=== PATIENT | male | born 1955 ===

== ENCOUNTER 2018-05-06 13:11 | Inpatient (IN) | payer BC, OTHER ==
[2018-05-06] MEDS ORDERED: Morphine 4 mg/ml ISec IVP STA ×2 (13:44→19:24)
[2018-05-06] MEDS ORDERED: Sodium Chloride 0.9% 500 ML IV STA (13:44)
--- NOTE | 2018-05-06 13:54 | ED PDOC ---
Arrival/HPI - General Chief Complaint: Trauma Time Seen by Provider: 05/06/18 13:16 Historian: Patient - History of Present Illness Narrative History of Present Illness (Text): 05/06/18 13:51 63 year old male, with no significant past medical history, presents to the emergency department brought in by EMS s/p fall off a ladder earlier today. Patient states he doesn't remember how high he was, what he was working on at the time, or how he fell. Patient is currently complaining of back pain and right shoulder pain. He denies any lower extremity pain, headache, dizziness, abdominal pain, nausea, vomiting, or any other complaint. Time/Duration: Prior to Arrival Symptom Onset: Sudden Symptom Course: Unchanged Activities at Onset: Significant Context: Other (fall from ladder ) Past Medical History - Provider Review Nursing Documentation Reviewed: Yes - Infectious Disease Hx of Infectious Diseases: None - Cardiac Hx Cardiac Disorders: No - Neurological Hx Neurological Disorder: No - Renal Hx Renal Disorder: No - Psychiatric Hx Substance Use: No - Anesthesia Hx Anesthesia: No Family/Social History - Physician Review Nursing Documentation Reviewed: Yes Family/Social History: No Known Family HX Smoking Status: Unknown If Ever Smoked Hx Alcohol Use: No Hx Substance Use: No Allergies/Home Meds Allergies/Adverse Reactions: Allergies No Known Allergies Allergy (Verified 05/06/18 13:24) Home Medications: Home Meds Medication Instructions Recorded Confirmed No Known Home Med 05/06/18 05/06/18 Review of Systems - Physician Review All systems were reviewed & negative as marked: Yes - Review of Systems Constitutional: absent: Fevers Respiratory: absent: SOB, Cough Cardiovascular: absent: Chest Pain Gastrointestinal: absent: Abdominal Pain, Constipation, Diarrhea, Nausea, Vomiting Musculoskeletal: Arthralgias, Back Pain, Myalgias, Other (right shoulder pain ). absent: Neck Pain Skin: absent: Pruritis, Skin Lesions Neurological: absent: Headache, Dizziness, Focal Weakness, Gait Changes, Speech Changes, Facial Droop Psychiatric: absent: Anxiety Physical Exam Vital Signs Reviewed: Yes Vital Signs Temp Pulse Resp BP Pulse Ox 05/06/18 13:32 97.9 F 81 16 164/77 H 97 Temperature: Afebrile Blood Pressure: Hypertensive Pulse: Regular Respiratory Rate: Normal Appearance: Positive for: Well-Appearing, Non-Toxic, Comfortable Pain Distress: None Mental Status: Positive for: Alert and Oriented X 3 - Systems Exam Head: Present: Atraumatic, Normocephalic Pupils: Present: PERRL Extroacular Muscles: Present: EOMI Conjunctiva: Present: Normal Mouth: Present: Moist Mucous Membranes Neck: Present: Normal Range of Motion. No: MIDLINE TENDERNESS (no midline c- spine tenderness, c-spine collar held in place ) Respiratory/Chest: Present: Clear to Auscultation, Good Air Exchange, Other (right sided bony rib tenderness, R sided shoulder tenderness). No: Respiratory Distress, Accessory Muscle Use Cardiovascular: Present: Regular Rate and Rhythm, Normal S1, S2. No: Murmurs Abdomen: No: Tenderness, Distention, Peritoneal Signs Back: Present: Midline Tenderness (midline thoracic tenderness) Upper Extremity: Present: Normal Inspection, Normal ROM (normal rom of R shoulder), Tenderness. No: Cyanosis, Edema, Deformity Lower Extremity: Present: Normal Inspection. No: Edema, Tenderness (no bony hip tenderness, no lower extremity tenderness ), Deformity Neurological: Present: GCS=15, CN II-XII Intact, Speech Normal Skin: Present: Warm, Dry, Normal Color. No: Rashes Psychiatric: Present: Alert, Oriented x 3 Medical Decision Making ED Course and Treatment: 05/06/18 13:57 Impression: 63 year old male who presents to the emergency department for evaluation s/p fall off ladder. Plan: -- Cervical spine CT -- Chest/abdomen/pelvis CT w/ IV contrast -- Head CT w/o IV contrast -- Thoracic spine CT w/o Contrast -- Labs -- Morphine -- IV fluids -- Reassess and disposition Progress Notes: 05/06/18 14:[address] w/o IV contrast reviewed by radiologist, shows: IMPRESSION: Normal CT of the head. 05/06/18 15:[address] reviewed by radiologist, shows: IMPRESSION: Mid right clavicular comminuted fracture. No vertebral body fracture. 05/06/18 15:59 Chest/abdomen/pelvis CT w/IV contrast reviewed by radiologist, shows: IMPRESSION: Small right lower lobe infiltrate/lung contusion. Small right pleural effusion. Fractures through the right posterior lateral 4th through 6th ribs. Mid right clavicle fracture. No evidence of vertebral body fracture no thoracic or lumbar spines. Bilateral renal calculi. Cholelithiasis. Liver cyst. 05/06/18 16:09 Placed R arm in sling. Will give medication for rib fractures and incentive spirometry. 05/06/18 16:[address] Beck and ortho consult placed 05/06/18 17:23 - Lab Interpretations I have reviewed the lab results: Yes - RAD Interpretation Radiology Orders: 05/06/18 13:41 CERVICAL SPINE W/O CONTRAST [CT] Stat CHEST,ABD,PEL W/IV CONT ONLY [CT] Stat HEAD W/O CONTRAST [CT] Stat Extension Work Director: Radiologist - Medication Orders Current Medication Orders: Sodium Chloride (Sodium Chloride 0.9%) 500 mls @ 999 mls/hr IV .Q31M STA Stop: 05/06/18 14:14 Discontinued Medications Morphine Sulfate (Morphine) 4 mg IVP STAT STA Stop: 05/06/18 13:45 - Scribe Statement The provider has reviewed the documentation as recorded by the Scribe Dara Kerns All medical record entries made by the Scribe were at my direction and personally dictated by me. I have reviewed the chart and agree that the record accurately reflects my personal performance of the history, physical exam, medical decision making, and the department course for this patient. I have also personally directed, reviewed, and agree with the discharge instructions and disposition. Disposition/Present on Arrival - Present on Arrival Any Indicators Present on Arrival: No History of DVT/PE: No History of Uncontrolled Diabetes: No Urinary Catheter: No History of Decub. Ulcer: No History Surgical Site Infection Following: None - Disposition Have Diagnosis and Disposition been Completed?: Yes Diagnosis: Pulmonary contusion, Ribs, multiple fractures, Clavicular fracture Disposition: HOSPITALIZED Disposition Time: 16:00 Patient Plan: Admission Patient Problems: Current Active Problems Problem Status Onset Pulmonary contusion Acute Ribs, multiple fractures Acute Condition: FAIR
[2018-05-06 14:16] LABS: BASO # 0.05 K/mm3 (0.0-2.0); BASO % 0.3 % (0.0-3.0); EOS # 0.5 (0.0-0.7); EOS % 3.5 % (1.5-5.0); LYMPH % 19.9 % (22.0-35.0); MEAN CELL VOLUME 96.5 fl (80.0-105.0); MEAN CORPUSCULAR HEMOGLOBIN 32.5 pg (25.0-35.0); MEAN CORPUSCULAR HGB CONC 33.6 g/dl (31.0-37.0); MEAN PLATELET VOLUME 10.2 fl (7.0-11.0); MONO # 0.6 (0.1-0.6); RBC 4.62 10^6/uL (3.5-6.1); RED CELL DISTRIBUTION WIDTH 12.5 % (11.5-14.5); WHITE BLOOD COUNT 14.9 10^3/uL (4.5-11.0)
[2018-05-06 14:26] LABS: ALB/GLOB RATIO 1.2 (1.1-1.8); ALBUMIN 4.1 g/dL (3.0-4.8); ALT/SGPT 29 U/L (7-56); AST/SGOT 40 U/L (17-59); BLOOD UREA NITROGEN 16 mg/dL (7-21); CALCIUM 9.4 mg/dL (8.4-10.5); GFR NON-AFRICAN AMERICAN > 60
[2018-05-06 14:30] LABS: PARTIAL THROMBOPLASTIN TIME 28.7 Seconds (26.9-38.3); PROTHROMBIN TIME 11.1 SECONDS (9.4-12.5)
--- NOTE | 2018-05-06 14:49 | CT ---
Date of service: 05/06/2018 PROCEDURE: CT HEAD WITHOUT CONTRAST. HISTORY: head injury COMPARISON: None available. TECHNIQUE: Axial computed tomography images were obtained through the head/brain without intravenous contrast. Radiation dose: Total exam DLP = 1071.97 mGy-cm. This CT exam was performed using one or more of the following dose reduction techniques: Automated exposure control, adjustment of the mA and/or kV according to patient size, and/or use of iterative reconstruction technique. FINDINGS: HEMORRHAGE: No intracranial hemorrhage. BRAIN: No mass effect or edema. No atrophy or chronic microvascular ischemic changes. VENTRICLES: Unremarkable. No hydrocephalus. CALVARIUM: Unremarkable. PARANASAL SINUSES: Unremarkable as visualized. No significant inflammatory changes. MASTOID AIR CELLS: Unremarkable as visualized. No inflammatory changes. OTHER FINDINGS: None. IMPRESSION: Normal CT of the Head.
--- NOTE | 2018-05-06 14:58 | CT ---
Date of service: 05/06/2018 PROCEDURE: CT Cervical Spine without contrast HISTORY: fall from ladder COMPARISON: None available. TECHNIQUE: Axial computed tomography images were obtained of the cervical spine without the use of intravenous contrast. Coronal and sagittal reformatted images were created and reviewed. Radiation dose: Total exam DLP = 653.72 mGy-cm. This CT exam was performed using one or more of the following dose reduction techniques: Automated exposure control, adjustment of the mA and/or kV according to patient size, and/or use of iterative reconstruction technique. FINDINGS: VERTEBRAE: No fracture. Normal alignment. No destructive bony lesion. DISCS/SPINAL CANAL/NEURAL FORAMINA: Multilevel degenerative disc disease with C5-6 left paracentral disc herniation. PARASPINAL SOFT TISSUES: Unremarkable. OTHER FINDINGS: Mid right clavicular comminuted fracture. IMPRESSION: Mid right clavicular comminuted fracture. No vertebral body fracture.
--- NOTE | 2018-05-06 16:01 | CT ---
Date of service: 05/06/2018 PROCEDURE: CT Chest, Abdomen and Pelvis with intravenous contrast HISTORY: fall from ladder COMPARISON: None available. TECHNIQUE: IV dose administered: Radiation dose: Total exam DLP = 687.74 mGy-cm. This CT exam was performed using one or more of the following dose reduction techniques: Automated exposure control, adjustment of the mA and/or kV according to patient size, and/or use of iterative reconstruction technique. FINDINGS: CT CHEST WITH CONTRAST: LUNGS: Small right lower lobe infiltrate/lung contusion. MEDIASTINUM: Unremarkable. Normal caliber aorta and pulmonary arterial trunk. No aortic dissection. Normal size heart. LYMPH NODES: Unremarkable. PLEURA: Small right pleural effusion BONES: Right posterior lateral 4th through 6th rib fractures. Right mid clavicle fracture. OTHER FINDINGS: None. CT ABDOMEN AND PELVIS: LIVER: 13 millimeter right hepatic cyst. No gross lesion or ductal dilatation. GALLBLADDER AND BILE DUCTS: 21 millimeter gallstone. PANCREAS: Unremarkable. No gross lesion or ductal dilatation. SPLEEN: Unremarkable. ADRENALS: Unremarkable. No mass. KIDNEYS AND URETERS: 2.8 centimeter left renal cyst. Bilateral renal calculi measuring up to 14 millimeters in the left renal pelvis. No definite hydronephrosis. VASCULATURE: No aortic atherosclerotic calcification or mural plaque present. Unremarkable. No aortic aneurysm. BOWEL: Unremarkable. No obstruction. No gross mural thickening. APPENDIX: Normal appendix. PERITONEUM: Unremarkable. No free fluid. No free air. LYMPH NODES: Unremarkable. No enlarged lymph nodes. BLADDER: Unremarkable. REPRODUCTIVE: Unremarkable. BONES: No acute fracture. OTHER FINDINGS: None. IMPRESSION: Small right lower lobe infiltrate/lung contusion. Small right pleural effusion. Fractures through the right posterior lateral 4th through 6th ribs. Mid right clavicle fracture. No evidence of vertebral body fracture no thoracic or lumbar spines. Bilateral renal calculi. Cholelithiasis. Liver cyst.
--- NOTE | 2018-05-06 16:10 | RAD ---
Date of service: 05/06/2018 PROCEDURE: CHEST RADIOGRAPH, 1 VIEW HISTORY: FALL COMPARISON: None available. FINDINGS: LUNGS: Clear. PLEURA: No pneumothorax or pleural fluid seen. CARDIOVASCULAR: No aortic atherosclerotic calcification present. Mild cardiomegaly OSSEOUS STRUCTURES: There is a displaced fracture of the right midclavicle. VISUALIZED UPPER ABDOMEN: Normal. OTHER FINDINGS: None. IMPRESSION: Displaced fracture of the right mid clavicle.
[2018-05-06 19:42] LABS: IRON 78 ug/dL (45-180)
[2018-05-06 20:03] LABS: % IRON SATURATION 28 % (20-55); TOTAL IRON BINDING CAPACITY 276 ug/dL (261-462)
[2018-05-06 21:36] VITALS: BMI 25.8
--- NOTE | 2018-05-06 22:22 | HP ---
DATE OF EXAM: 05/06/2018 The patient was seen and examined at the bedside 05/06/2018. CHIEF COMPLAINT: Trauma. HISTORY OF PRESENT ILLNESS: Mr. Shemar Cline is a 63-year-old male with no significant past medical history, came to the emergency department, brought by EMS status post fall of a ladder earlier today. The patient states does not remember how high he was, what he was working on that time and how he fell. The patient is currently complaining of back pain and right shoulder pain. He denies lower extremity pain. No headache. No dizziness. No chest pain. No palpitations. No hematuria. No hematochezia. PAST MEDICAL HISTORY: Nonsignificant. FAMILY HISTORY: Father and mother noncontributory. HABITS: Never smoked. No drugs. No ethanol. ALLERGIES: THE PATIENT IS NOT ALLERGIC WITH ANY MEDICATIONS. HOME MEDICATIONS: Denied. REVIEW OF SYSTEMS: The patient was seen and examined at the bedside, looking comfortable. No fever. No chills. No shortness of breath. No chest pain. No abdominal pain, constipation, diarrhea, nausea, or vomiting. Complaining about back pain, myalgia, especially right shoulder pain. No pruritus or skin ulcer. No dizziness. PHYSICAL EXAMINATION: VITAL SIGNS: Temperature 97.9, pulse 81, respiratory rate 20 , blood pressure 120/80 , and pulse oximetry 97. HEENT: Head is normocephalic and atraumatic. Eyes; PERRLA. Extraocular muscles intact. Conjunctivae clear. Nose patent. NECK: Supple. No carotid bruits, JVD, or thyromegaly. CHEST: Bilaterally symmetrical. HEART: S1 and S2 positive. LUNGS: Clear to auscultation. ABDOMEN: Soft. Bowel sounds present. No organomegaly. EXTREMITIES: No edema. No cyanosis. NEUROLOGIC: The patient awake and alert. Moving all four extremities. No focal deficits. LABORATORY DATA: White blood cell 14.9, hemoglobin 15, hematocrit 44.6, and platelets 258. Sodium 138, potassium 4.1, BUN 15, creatinine 0.7, and glucose 113. ASSESSMENT AND PLAN: Mr. Shemar Cline is a 63-year-old male with leukocytosis, hyperglycemia, status post fall, and shortness of breath. Chest x-ray done shows displaced fracture of the right mid clavicle. CAT scan of the head done, normal CAT scan of the head. CAT scan of the chest, abdomen and pelvis, small right lower lobe infiltrates or lung contusion, small right pleural effusion, fracture through the right posterolateral fourth through sixth rib, mid right clavicular fracture, no evidence of vertebral fracture, no thoracic or pulmonary spine fracture. Bilateral renal calculi. Has cholelithiasis. Cervical spine CT done. Mid right comminuted fracture, no vertebral body fracture. We admitted the patient, call consult with Orthopedic, Dr. Vern Grimaldo. Morphine given. We will call consult with regrinder. Gastrointestinal and deep vein thrombosis prophylaxes. Repeat labs. We will follow up. Shahida Berry MD [facility]
[2018-05-07] MEDS ORDERED: HYDROmorphone 0.5 mg/0.5 ml ISec IVP STA (00:43)
[2018-05-07] MEDS: Albuterol-Ipratrop 3 mg / 0.5 (3 ml) UD IH SCH ×3 (00:47→08:13)
--- NOTE | 2018-05-07 03:30 | CP.PCM.PN ---
Subjective - Date & Time of Evaluation Date of Evaluation: 05/07/18 Time of Evaluation: : - Subjective Subjective: Patient was seen because I was asked to co-sing order of dilaudid 0.5 mg IV stat. Nurse states that it was obtained from medical office worker because there was an hold order for morphine IV prn. It was held as per , as per ER protocol. Patient complained of ribs pain and shoulder pain. Has no other complaints. Medical record was reviewed. This 63 year old male was admitted after a fall from a ladder,back pain, right shoulder pain. Has PMH of no significant diseases. Objective - Vital Signs/Intake and Output Vital Signs (last 24 hours): Temp Pulse Resp BP Pulse Ox 98.4 F 68 20 153/82 H 95 05/06/18 22:00 05/07/18 00:49 05/06/18 22:00 05/06/18 22:00 05/06/18 22:00 Intake and Output: 05/06/18 05/07/18 18:59 06:59 Intake Total 480 Balance 480 - Medications Medications: Current Medications Acetaminophen (Tylenol 325mg Tab) 650 mg PO Q4H PRN PRN Reason: Fever >100.4 F Albuterol/Ipratropium (Duoneb 3 Mg/0.5 Mg (3 Ml) Ud) 3 ml IH [id number] [facility] Last Admin: 05/07/18 02:03 Dose: Not Given Famotidine (Pepcid) 40 mg PO HS [facility] Last Admin: 05/06/18 21:27 Dose: 40 mg Hydromorphone HCl (Dilaudid) 0.5 mg IVP Q4H PRN PRN Reason: Pain, Mild (1-3) - Labs Labs: 05/06/18 14:00 05/06/18 14:00 PT 11.1 SECONDS (9.4-12.5) 05/06/18 14:00 INR 1.00 05/06/18 14:00 APTT 28.7 Seconds (26.9-38.3) 05/06/18 14:00 - Constitutional Appears: Well, No Acute Distress - Head Exam Head Exam: ATRAUMATIC, NORMAL INSPECTION, NORMOCEPHALIC - Eye Exam Eye Exam: Normal appearance - ENT Exam ENT Exam: Normal External Ear Exam - Neck Exam Neck Exam: Normal Inspection - Respiratory Exam Respiratory Exam: NORMAL BREATHING PATTERN - Cardiovascular Exam Cardiovascular Exam: absent: JVD - GI/Abdominal Exam GI & Abdominal Exam: absent: Distended - Rectal Exam Rectal Exam: Deferred - Exam Additional comments: Deferred. - Extremities Exam Extremities Exam: Normal Inspection - Back Exam Back Exam: NORMAL INSPECTION - Neurological Exam Neurological Exam: Alert, Awake, Oriented x3 - Psychiatric Exam Psychiatric exam: Normal Affect, Normal Mood - Skin Skin Exam: Normal Color Assessment and Plan - Assessment and Plan (Free Text) Assessment: Right shoulder pain. Back pain. S/P fall. Right mid clavicle fracture. Plan: Dilaudid 0.5 mg IV x 1. Continue observation.
[2018-05-07 07:14] LABS: HEMOGLOBIN 12.8 g/dL (14.0-18.0); MEAN CORPUSCULAR HEMOGLOBIN 31.5 pg (25.0-35.0); RBC 4.06 10^6/uL (3.5-6.1); RED CELL DISTRIBUTION WIDTH 12.6 % (11.5-14.5); WHITE BLOOD COUNT 11.1 10^3/uL (4.5-11.0)
[2018-05-07 07:30] LABS: BLOOD UREA NITROGEN 17 mg/dL (7-21); CALCIUM 8.5 mg/dL (8.4-10.5); GFR NON-AFRICAN AMERICAN > 60
[2018-05-07 08:53] LABS: MEAN CELL VOLUME 97.1 fl (80.0-105.0)
[2018-05-07] MEDS: HYDROmorphone 0.5 mg/0.5 ml ISec IVP PRN ×3 (08:59→17:33)
[2018-05-07] MEDS ORDERED: Albuterol-Ipratrop 3 mg / 0.5 (3 ml) UD IH PRN (11:55)
--- NOTE | 2018-05-07 12:23 | CP.PCM.CON ---
History of Present Illness - History of Present Illness History of Present Illness: Orthopedic consult: Dr. Porras Patient is a RHD 63 y/o male c/o R shoulder pain. 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 He admits to falling onto his right shoulder, hitting his head on the floor, losing consciousness, awakening upon his arrival to the [facility] by ambulance. Currently, his pain is controlled with pain medications, describing it as dull, intermittent and rated a 2/10. The pain is located diffuse anteriorly and is worsened with movement of the RUE. The pain is alleviated with inactivity. He denies any radiation of pain, numbness or tingling. He also denies CP/SOB/N/V/D/fever/dysuria/melena. PMH: denies PSH: Appendectomy meds: as per med rec allergy: NKDA SH: denies tobacco/drug use, admits to glass of wine with dinner daily. 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 Review of Systems - Review of Systems All systems: reviewed and no additional remarkable complaints except Review of Systems: as per HPI Past Patient History - Infectious Disease Hx of Infectious Diseases: None - Past Medical History & Family History Past Family History: Reviewed and not pertinent - Past Social History Smoking Status: Never Smoked - CARDIAC Hx Cardiac Disorders: No - NEUROLOGICAL Hx Neurological Disorder: No - RENAL Hx Chronic Kidney Disease: No - MUSCULOSKELETAL/RHEUMATOLOGICAL Hx Falls: Yes - PSYCHIATRIC Hx Substance Use: No - ANESTHESIA Hx Anesthesia: No Meds Allergies/Adverse Reactions: Allergies Allergy/AdvReac Type Severity Reaction Status Date / Time No Known Allergies Allergy Verified 05/06/18 13:24 - Medications Medications: Current Medications Acetaminophen (Tylenol 325mg Tab) 650 mg PO Q4H PRN PRN Reason: Fever >100.4 F Albuterol/Ipratropium (Duoneb 3 Mg/0.5 Mg (3 Ml) Ud) 3 ml IH [id number] PRN PRN Reason: Shortness of Breath Arformoterol Tartrate (Brovana) 15 mcg IH [id number] [facility] Budesonide (Pulmicort Respules) 0.5 mg IH [id number] [facility] Famotidine (Pepcid) 40 mg PO HS [facility] Last Admin: 05/06/18 21:27 Dose: 40 mg Hydromorphone HCl (Dilaudid) 0.5 mg IVP Q4H PRN PRN Reason: Pain, Mild (1-3) Last Admin: 05/07/18 08:59 Dose: 0.5 mg Lidocaine (Lidoderm) 1 ea TD DAILY SHERRY Physical Exam - Constitutional Appears: Well, No Acute Distress - Head Exam Head Exam: ATRAUMATIC, NORMOCEPHALIC - Eye Exam Eye Exam: EOMI, Normal appearance - ENT Exam ENT Exam: Mucous Membranes Moist - Respiratory Exam Respiratory Exam: NORMAL BREATHING PATTERN - Extremities Exam Additional comments: R shoulder: limited ROM due to pain/fracture mild swelling over mid clavicle moderate tenderness over mid clavicle no skin tenting sensation intact AXN/MN/UN/RN motor intact MN/UN/RN radial pulse intact L shoulder: no tenderness no masses/swelling/lesions/erythema FROM sensation intact AXN/MN/UN/RN motor intact MN/UN/RN radial pulse intact - Neurological Exam Neurological exam: Alert, CN II-XII Intact, Oriented x3 - Psychiatric Exam Psychiatric exam: Normal Affect, Normal Mood - Skin Skin Exam: Normal Color, Warm Results - Vital Signs Recent Vital Signs: Last Vital Signs Temp 98.3 F 05/07/18 10:17 Pulse 66 05/07/18 10:17 Resp 18 05/07/18 10:17 BP 154/86 H 05/07/18 10:17 Pulse Ox 98 05/07/18 10:17 - Labs Result Diagrams: 05/07/18 06:20 05/07/18 06:20 Labs: Laboratory Results - last 24 hr 05/06/18 05/06/18 05/06/18 14:00 14:00 14:00 WBC 14.9 H RBC 4.62 Hgb 15.0 Hct 44.6 MCV 96.5 MCH 32.5 MCHC 33.6 RDW 12.5 Plt Count 258 MPV 10.2 Neut % (Auto) 72.3 H Lymph % (Auto) 19.9 L [place] % (Auto) 4.0 Eos % (Auto) 3.5 Baso % (Auto) 0.3 Lymph # (Auto) 3.0 [place] # (Auto) 0.6 Eos # (Auto) 0.5 Baso # (Auto) 0.05 Absolute Neuts (auto) 10.74 H PT 11.1 INR 1.00 APTT 28.7 Sodium 138 Potassium 4.1 Chloride 98 Carbon Dioxide 32 Anion Gap 12 BUN 16 Creatinine 0.7 L Est GFR ( Amer) > 60 Est GFR (Non-Af Amer) > 60 Random Glucose 113 H Calcium 9.4 Iron TIBC % Saturation Total Bilirubin 0.5 AST 40 ALT 29 Alkaline Phosphatase 74 Total Protein 7.5 Albumin 4.1 Globulin 3.5 Albumin/Globulin Ratio 1.2 Triglycerides Cholesterol LDL Cholesterol Direct HDL Cholesterol TSH 3rd Generation 05/06/18 05/06/18 05/07/18 14:00 14:00 06:20 WBC 11.1 H D RBC 4.06 Hgb 12.8 L D Hct 36.6 L MCV 97.1 MCH 31.5 MCHC 35.0 RDW 12.6 Plt Count 250 MPV 10.0 Neut % (Auto) Lymph % (Auto) [place] % (Auto) Eos % (Auto) Baso % (Auto) Lymph # (Auto) [place] # (Auto) Eos # (Auto) Baso # (Auto) Absolute Neuts (auto) PT INR APTT Sodium Potassium Chloride Carbon Dioxide Anion Gap BUN Creatinine Est GFR ( Amer) Est GFR (Non-Af Amer) Random Glucose Calcium Iron 78 TIBC 276 % Saturation 28 Total Bilirubin AST ALT Alkaline Phosphatase Total Protein Albumin Globulin Albumin/Globulin Ratio Triglycerides 79 Cholesterol 236 H LDL Cholesterol Direct 149 H HDL Cholesterol 57 TSH 3rd Generation 05/07/18 05/07/18 06:20 06:20 WBC RBC Hgb Hct MCV MCH MCHC RDW Plt Count MPV Neut % (Auto) Lymph % (Auto) [place] % (Auto) Eos % (Auto) Baso % (Auto) Lymph # (Auto) [place] # (Auto) Eos # (Auto) Baso # (Auto) Absolute Neuts (auto) PT INR APTT Sodium 136 Potassium 3.7 Chloride 99 Carbon Dioxide 30 Anion Gap 12 BUN 17 Creatinine 0.6 L Est GFR ( Amer) > 60 Est GFR (Non-Af Amer) > 60 Random Glucose 125 H Calcium 8.5 Iron TIBC % Saturation Total Bilirubin AST ALT Alkaline Phosphatase Total Protein Albumin Globulin Albumin/Globulin Ratio Triglycerides Cholesterol LDL Cholesterol Direct HDL Cholesterol TSH 3rd Generation 2.11 - Impressions Impression: Accession No. : [id number] Patient Name / ID : SHREYA VERNON / [id number] Exam Date : 05/06/2018 15:40:23 ( Approved ) Study Comment : Sex / Age : M / 63Y Creator : Ace Luke MD Dictator : Ace Luke MD [employer] Supervisor : Grader Marker : Ace Luke MD Approver2 : Report Date : 05/06/2018 16:07:00 My Comment : Date of service: 05/06/2018 PROCEDURE: CHEST RADIOGRAPH, 1 VIEW HISTORY: FALL COMPARISON: None available. FINDINGS: LUNGS: Clear. PLEURA: No pneumothorax or pleural fluid seen. CARDIOVASCULAR: No aortic atherosclerotic calcification present. Mild cardiomegaly OSSEOUS STRUCTURES: There is a displaced fracture of the right midclavicle. VISUALIZED UPPER ABDOMEN: Normal. OTHER FINDINGS: None. IMPRESSION: Displaced fracture of the right mid clavicle. Accession No. : [id number] Patient Name / ID : SHREYA VERNON / [id number] Exam Date : 05/06/2018 15:21:13 ( Approved ) Study Comment : Sex / Age : M / 63Y Creator : Reynold Kunz MD Dictator : Reynold Kunz MD [employer] Supervisor : Grader Marker : Reynold Kunz MD Approver2 : Report Date : 05/06/2018 15:57:51 My Comment : Date of service: 05/06/2018 PROCEDURE: CT Chest, Abdomen and Pelvis with intravenous contrast HISTORY: fall from ladder COMPARISON: None available. TECHNIQUE: IV dose administered: Radiation dose: Total exam DLP = 687.74 mGy-cm. This CT exam was performed using one or more of the following dose reduction techniques: Automated exposure control, adjustment of the mA and/or kV according to patient size, and/or use of iterative reconstruction technique. FINDINGS: CT CHEST WITH CONTRAST: LUNGS: Small right lower lobe infiltrate/lung contusion. MEDIASTINUM: Unremarkable. Normal caliber aorta and pulmonary arterial trunk. No aortic dissection. Normal size heart. LYMPH NODES: Unremarkable. PLEURA: Small right pleural effusion BONES: Right posterior lateral 4th through 6th rib fractures. Right mid clavicle fracture. OTHER FINDINGS: None. CT ABDOMEN AND PELVIS: LIVER: 13 millimeter right hepatic cyst. No gross lesion or ductal dilatation. GALLBLADDER AND BILE DUCTS: 21 millimeter gallstone. PANCREAS: Unremarkable. No gross lesion or ductal dilatation. SPLEEN: Unremarkable. ADRENALS: Unremarkable. No mass. KIDNEYS AND URETERS: 2.8 centimeter left renal cyst. Bilateral renal calculi measuring up to 14 mi llimeters in the left renal pelvis. No definite hydronephrosis. VASCULATURE: No aortic atherosclerotic calcification or mural plaque present. Unremarkable. No aortic aneurysm. BOWEL: Unremarkable. No obstruction. No gross mural thickening. APPENDIX: Normal appendix. PERITONEUM: Unremarkable. No free fluid. No free air. LYMPH NODES: Unremarkable. No enlarged lymph nodes. BLADDER: Unremarkable. REPRODUCTIVE: Unremarkable. BONES: No acute fracture. OTHER FINDINGS: None. IMPRESSION: Small right lower lobe infiltrate/lung contusion. Small right pleural effusion. Fractures through the right posterior lateral 4th through 6th ribs. Mid right clavicle fracture. No evidence of vertebral body fracture no thoracic or lumbar spines. Bilateral renal calculi. Cholelithiasis. Liver cyst. Accession No. : [id number] Patient Name / ID : SHREYA VERNON / [id number] Exam Date : 05/07/2018 13:00:14 ( Approved ) Study Comment : Sex / Age : M / 63Y Creator : Ace Luke MD Dictator : Ace Luke MD [employer] Supervisor : Grader Marker : Ace Luke MD Approver2 : Report Date : 05/07/2018 13:15:11 My Comment : Date of service: 05/07/2018 PROCEDURE: Radiographs of the right clavicle. HISTORY: clavicle fx COMPARISON: None. TECHNIQUE: Three views obtained. FINDINGS: RIGHT CLAVICLE: There is a displaced overlapping fracture of the right mid clavicle JOINTS: Right acromioclavicular and glenohumeral joints are grossly unremarkable. SOFT TISSUES: Grossly unremarkable. OTHER FINDINGS: None. IMPRESSION: There is a displaced overlapping fracture of the right mid clavicle Assessment & Plan (1) Closed right clavicular fracture Assessment and Plan: -Conservative management versus surgical intervention was explained to the patient, as well as the risks and benefits of both. Dr. 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 -Patient would like to think about decision and talk to family about conservative vs surgical management -NPO pMN if patient decides on surgery -Orthopedically stable for discharge to home if patient decides for conservative management. F/u in office within 7-10 days of discharge. -NWB, immobilization in sling for now -pain control -ice to R clavicle -Patient seen and examined with Dr. Porras, case and plan above discussed in agreement. Status: Acute - Date & Time Date: 05/07/18 Time: 12:00
--- NOTE | 2018-05-07 12:56 | CON ---
DATE: 05/07/2018 PULMONARY CONSULT NOTE REFERRING PHYSICIAN: Shahida Berry MD REASON FOR CONSULTATION: Pleural effusion and lung contusion. HISTORY OF PRESENT ILLNESS: This is a 63-year-old male with no significant past medical history who came to the emergency room status post fall off of the ladder. The patient does not remember how high he was, how he fell while he was working on, seen today laying in bed. Reports being medicated with pain medication has back pain and shoulder pain. PAST MEDICAL HISTORY: No significant past medical history. FAMILY HISTORY: No significant cardiopulmonary disease reported. SOCIAL HISTORY: Reports being former smoker quits over 20 years ago. No EtOH abuse. No illicit drug use. ALLERGIES: NO KNOWN ALLERGIES. MEDICATIONS: Reviewed. Tylenol 650 mg every 4 hours p.r.n., fever greater than 100.4, DuoNeb 3 mL inhalation every 6 hours, Pepcid 40 mg at bedtime, Dilaudid 0.5 mg IV push every 4 hours p.r.n. REVIEW OF SYSTEMS: No headache, rhinitis, cough, shortness of breath, chest pain, abdominal pain, nausea, vomiting, diarrhea reported. Does have right rib pain and shoulder pain. The patient admits to snoring. Denies any daytime sleepiness. PHYSICAL EXAMINATION: GENERAL: No acute distress. VITAL SIGNS: Blood pressure 154/86, pulse 66, temperature 98.3 and oxygen saturations 98%. HEENT: Moist mucous membranes. Mallampati score 4. Crowded airway. NECK: Supple. No JVD. RESPIRATORY: Crackles on the right. CARDIOVASCULAR: S1 and S2. ABDOMEN: Soft and nontender. No distention. No organomegaly. EXTREMITIES: No bilateral lower extremity edema. NEUROLOGIC: Awake, alert and verbal. Following commands. LABORATORY DATA: Reviewed. WBC 11.1, RBC 4.06, hemoglobin 12.8, hematocrit 36.4, and platelets 250. PT 11.1, INR 1 and APTT 28.7. Sodium 136, potassium 3.7, chloride 99, carbon dioxide 30, anion gap 12, BUN 17, creatinine 0.6, GFR greater than 60, random glucose 125, calcium 8.5, iron 70, TIBC 276, percent saturation 28, total bilirubin 0.5, AST 40, ALT 29, alkaline phosphatase 74, total protein 7.5, albumin 4.1, globulin 3.5, albumin-globulin ratio 1.2, triglycerides 79, cholesterol 236, LDL cholesterol 149, HDL cholesterol 57 and TSH 2.11. Cervical spine CT shows mid right clavicular comminuted fracture. No vertebral body fracture. Chest, abdomen, pelvis CT shows small right lower lobe infiltrate or lung contusions, small right pleural effusion. Fractures to the right posterolateral fourth through sixth rib, mid right clavicular fracture, no evidence of vertebral body fracture and no thoracic or lumbar spine. Bilateral renal calculi, cholelithiasis, liver cyst. Normal head CT. Chest x-ray shows displaced fracture of the right mid clavicle. IMPRESSION AND PLAN: Status post fall, fracture of right posterolateral fourth to sixth rib, mid right clavicle fracture, pleural effusion, lung contusion seen on CT. The patient is scheduled for orthopedic followup, pain management. Continue inhaled bronchodilators with pulmonary toileting. We will change DuoNeb to p.r.n., add Brovana and Pulmicort routine. Continue incentive spirometry. We will add lidocaine patch to right rib area for pain, aggressive therapy, out of bed to chair. The patient noted with 3 g hemoglobin drop. We will send stool for occult blood. We will not put the patient on chemical prophylaxis due to drop in hemoglobin. If hemoglobin improves, we will consider adding chemical prophylaxis, but for now, we will use sequential compression devices to bilateral lower extremities, pain management. The patient will need followup CT scan to followup on pleural effusion, contusion. This patient was seen and examined with Dr. Smith. Discussed assessment and plan as described above. This patient was seen and examined with Alec Swenson, nurse practitioner. Discussed assessment and plan as described above. Thank you for this consult and we will follow with you. Alec Swenson APN Valeriy Smith MD SUMAYA
--- NOTE | 2018-05-07 13:18 | RAD ---
Date of service: 05/07/2018 PROCEDURE: Radiographs of the right clavicle. HISTORY: clavicle fx COMPARISON: None. TECHNIQUE: Three views obtained. FINDINGS: RIGHT CLAVICLE: There is a displaced overlapping fracture of the right mid clavicle JOINTS: Right acromioclavicular and glenohumeral joints are grossly unremarkable. SOFT TISSUES: Grossly unremarkable. OTHER FINDINGS: None. IMPRESSION: There is a displaced overlapping fracture of the right mid clavicle
[2018-05-07 13:46] LABS: FOLATE 12.1 ng/mL
[2018-05-07] MEDS: Naproxen 550 mg Tab PO SCH (17:33)
[2018-05-07] MEDS: Arformoterol 15 mcg/2 ml Inh Sol IH SCH (20:15)
[2018-05-07] MEDS: Budesonide 0.5 mg/2 ml Inhal Susp UD IH SCH (20:15)
--- NOTE | 2018-05-07 21:18 | CON ---
DATE: 05/07/2018 CHIEF COMPLAINT: Right shoulder displaced clavicle fracture and multiple rib fractures. HISTORY OF PRESENT ILLNESS: Patient is a 63-year-old male, right-hand dominant, who fell off the ladder, yesterday, landing on to his right side. Patient states he had loss of consciousness and was brought to [facility] Emergency Room. X-rays showing a displaced and shortened mid-shaft clavicle fracture and multiple rib fracture. Currently, patient examined at bedside. He reports of pain over the right shoulder. Also denies any paresthesia or motor weakness of right upper extremity. Denies pain in any other extremity or joint. PAST MEDICAL HISTORY: None. PAST SURGICAL HISTORY: Appendicitis. PHYSICAL EXAMINATION RIGHT SHOULDER: There is ecchymosis and swelling. No skin tenting. Tender to palpation over the mid-shaft clavicle. Limited range of motion. Neurovascularly intact distally. IMAGING: X-rays of patient's right clavicle are showing a displaced and shortened mid-shaft clavicular fracture, shortening of 3 centimeters. There is a nondisplaced rib fracture on the right side. ASSESSMENT 1. A 63-year-old male with traumatic right shoulder displaced and shortened mid-shaft clavicle fracture. 2. Multiple right-sided nondisplaced rib fractures. TREATMENT: I had a detailed discussion with the patient, reviewing physical exam and imaging findings. I presented to the patient different treatment options, both surgical versus nonsurgical treatment options. I reviewed the risks and benefits of the surgery with the patient in detail. The risks included, but not limited to bleeding, infection, nerve or vessel damage, continuing pain, stiffness, malunion, nonunion, symptomatic hardware and need for further surgery. I presented to the patient the option of surgical fixation due to significant shortening of the clavicle. Patient would like to consider his options and proceed with the treatment option. Dillan Porras MD
--- NOTE | 2018-05-08 04:56 | PN ---
DATE: 05/07/2018 SUBJECTIVE: The patient is a 63-year-old male. The patient is seen and examined at the bedside. and sister were on the bedside. No fever. No chills. No hematuria or hematochezia. No headache or dizziness. No chest pain. No palpitation. PHYSICAL EXAMINATION: VITAL SIGNS: Blood pressure 134/86, pulse 83, temperature 98.3, oxygen saturation 98%. HEENT: Head: Normocephalic and atraumatic. Eyes: PERRLA. Extraocular muscles intact. Conjunctivae clear. Nose patent. NECK: Supple. No carotid bruit. No JVP or thyromegaly. CHEST: Bilaterally symmetrical. HEART: S1 and S2 positive. LUNGS: Clear to auscultation. ABDOMEN: Soft. Bowel sounds present. No organomegaly. EXTREMITIES: No edema. No cyanosis. NEUROLOGIC: The patient awake and alert. Moving all four extremities. No focal deficit. LABORATORY DATA: White blood cells 11.1, hemoglobin 12.2, hematocrit 38.6, and platelets 250. Sodium 133, potassium 3.7, BUN 17, creatinine 0.6. MEDICATIONS: Tylenol, DuoNeb, Pepcid, Dilaudid. ASSESSMENT AND PLAN: Mr. Shemar Cline is a 63-year-old male with no significant past medical history, status post fall at job, fracture of the right posterolateral fourth and sixth ribs, mid right clavicle fracture, pleural effusion, lung contusion. The patient was scheduled to have orthopedic followup. I heard the patient refused the surgery. Getting pain medication. Orthopedics is consulted. Pulmonary Disease is on the case. Gastrointestinal and deep venous thrombosis prophylaxis. chart reviewed by me. I reviewed Dr. Multani's notes. The patient has a history of appendectomy. The patient had a closed right clavicular fracture. Conservative management versus surgical intervention was explained to the patient as well as risks and benefits of both. Dr. Multani recommended to do the medical surgical fixation due to the patient's dependency on the right upper extremity. The patient would like to think about this and talk to the family about conservative versus a surgery. According to nursing staff, nothing by mouth after midnight for surgery. Continue pain management. Repeat labs. We will follow up. Shahida Berry MD [facility] # [phone] SUMAYA
[2018-05-08 06:56] LABS: BASO # 0.02 K/mm3 (0.0-2.0); BASO % 0.2 % (0.0-3.0); EOS # 0.3 (0.0-0.7); EOS % 2.7 % (1.5-5.0); HEMOGLOBIN 12.6 g/dL (14.0-18.0); LYMPH # 1.5 (1.2-3.4); LYMPH % 15.6 % (22.0-35.0); MEAN CORPUSCULAR HEMOGLOBIN 31.4 pg (25.0-35.0); MEAN CORPUSCULAR HGB CONC 32.1 g/dl (31.0-37.0); MEAN PLATELET VOLUME 10.4 fl (7.0-11.0); MONO # 0.6 (0.1-0.6); MONO % 5.8 % (1.0-6.0); RBC 4.01 10^6/uL (3.5-6.1); RED CELL DISTRIBUTION WIDTH 12.7 % (11.5-14.5); WHITE BLOOD COUNT 9.8 10^3/uL (4.5-11.0)
[2018-05-08] MEDS: Arformoterol 15 mcg/2 ml Inh Sol IH SCH (07:30)
[2018-05-08] MEDS: Budesonide 0.5 mg/2 ml Inhal Susp UD IH SCH (07:31)
[2018-05-08 07:57] VITALS: O2SAT 95
[2018-05-08] MEDS: Naproxen 550 mg Tab PO SCH (09:05)
[2018-05-08] MEDS: HYDROmorphone 0.5 mg/0.5 ml ISec IVP PRN (09:46)
[2018-05-08] MEDS ORDERED: Lidocaine 5% Patch TD SCH (10:00)
--- NOTE | 2018-05-08 11:28 | PN ---
DATE: 05/08/2018 PULMONARY PROGRESS NOTE REFERRING PHYSICIAN: Dr. Shahida Berry. SUBJECTIVE: The patient is seen lying in bed. No acute distress. No overnight events reported. No headache, rhinitis, cough, shortness of breath, chest pain, abdominal pain, nausea, vomiting, diarrhea, leg pain, or leg swelling reported. The patient had bowel movement today. Denies any pain at this time, was medicated for pain this morning. OBJECTIVE: GENERAL: No acute distress. VITAL SIGNS: Blood pressure 145/79, pulse 55, temperature 97.5, and oxygen saturation 95% on room air. HEENT: Moist mucous membranes. Mallampati score 4. Crowded airway. NECK: Supple. No JVD. some swelling to right clavicle. RESPIRATORY: Decreased breath sounds on the right. CARDIOVASCULAR: S1 and S2. ABDOMEN: Soft and nontender. No distention. No organomegaly. EXTREMITIES: No bilateral lower extremity edema. NEUROLOGIC: Awake, alert, and verbal. Following commands. MEDICATIONS: Reviewed. Tylenol 650 mg every 4 hours p.r.n. for fever greater than 100.4, DuoNeb 3 mL inhalation every 6 hours p.r.n., Brovana 15 mcg every 12 hours, Lipitor 10 mg at dinner, Pulmicort 0.5 mg inhalation every 12 hours, Pepcid 40 mg at bedtime, Dilaudid 0.5 mg IV push every 4 hours p.r.n. for mild pain, Lidoderm patch transdermal daily, and naproxen 550 mg p.o. twice a day. LABORATORY DATA: Reviewed. WBC 9.8, RBC 4.01, hemoglobin 12.6, hematocrit 39.3, and platelets 221. TSH 211. Clavicle x-ray shows displaced overlapping fracture of the right mid clavicle. IMPRESSION AND PLAN: Status post fall, fracture of right posterolateral fourth to sixth rib, mid right clavicle fracture, pleural effusion, lung contusion seen on CT. Pain management. Continue inhaled bronchodilators for pulmonary toileting. Continue incentive spirometry use. Physical therapy; out of bed to chair. Stool for occult blood still pending to be collected. Continue sequential compression devices to bilateral lower extremities at this time due to drop in hemoglobin in previous blood work. We will order chest x-ray to be done today to rule out effusion, right infiltrate. If the patient should be discharged home, we recommend he go home on Ventolin HFA 2 puffs every 4 hours around the clock, naproxen 550 mg twice a day for 10 days, lidocaine patch transdermal for 10 days and Tylenol 650 mg every 6 hours p.r.n. for 10 days. This patient was seen and examined with Dr. Smith. Discussed assessment and plan as described above. This patient was seen and examined with Alec Swenson, nurse practitioner. Discussed assessment and plan as described above. Thank you for this consult. We will follow with you. Alec Swenson APN Valeriy Smith MD SUMAYA
--- NOTE | 2018-05-08 12:19 | RAD ---
Date of service: 05/08/2018 PROCEDURE: CHEST RADIOGRAPH, 1 VIEW HISTORY: rule out effusion/infiltrate COMPARISON: 05/06/2018 FINDINGS: LUNGS: Clear. PLEURA: No pneumothorax or pleural fluid seen. CARDIOVASCULAR: No aortic atherosclerotic calcification present. Mild cardiomegaly OSSEOUS STRUCTURES: No significant abnormalities. VISUALIZED UPPER ABDOMEN: Normal. OTHER FINDINGS: None. IMPRESSION: No active disease.
[2018-05-08 14:43] VITALS: BP 166/74; PULSE 56; RESP 20; TEMP 98.2
--- NOTE | 2018-05-08 22:47 | CON ---
DATE: 05/08/2018 LOCATION: The patient is in room 567, bed 2. REASON FOR CONSULTATION: Hypertension, status post fall, status post fracture of the clavicle, and status post fracture of ribs. 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 The patient denies any history of previous cardiac problem or any exertional chest pain. No history of any medical problem in the past. PAST MEDICAL HISTORY: Nonsignificant. MEDICATIONS: The patient was not taking any medications at home. PERSONAL HISTORY: Denies smoking, drinking, or using any illicit drugs. ALLERGIES: THE PATIENT DENIES ANY ALLERGIES. The patient when came to the emergency room was on Levaquin and blood pressure was also elevated. REVIEW OF SYSTEMS: All the systems reviewed, positive mentioned in the history, others were negative. PHYSICAL EXAMINATION: VITAL SIGNS: Blood pressure on 05/07/2018 was 202/90, then it went down to 123/68 this morning and later on it went to 166/74, respirations 20, pulse 56, and temperature 98.2. HEENT: Head is normocephalic. Eyes; pupils normal. Conjunctivae normal. Nose and throat normal. NECK: JVP low. Carotid equal. THORAX: AP diameter normal. LUNGS: Clear. CHEST: The patient has tenderness in the right upper chest and also in the mid chest and the right shoulder under the clavicle area. LUNGS: Clear. HEART: S1 and S2. No rub. No click. ABDOMEN: Soft and nontender. No organomegaly. Bowel sounds normal. EXTREMITIES: No clubbing or cyanosis. LABORATORY DATA: WBC 9.8, hemoglobin 12.6, hematocrit 39.3, and platelets 221. Sodium 136, potassium 3.7, BUN 17, creatinine 0.6, and random glucose 125. TSH 2.11, cholesterol 236, and LDL 149. CAT scan of the head was normal. Cervical spine CAT scan showed mid right clavicular comminuted fracture, no vertebral body fracture. Chest x-ray shows displaced fracture of the right mid clavicle. On CT chest, small right lower lobe infiltrate, possible contusion, small right pleural effusion, fracture detected to the right posterior lateral 4th through 6th ribs, and mid right clavicle fracture. DIAGNOSES: Fall, causing rib fracture and clavicle fracture, contusion of the chest, small pleural effusion, hypertension, portal hypertension may be initially when the patient came with severe pain, high cholesterol 236. PLAN: The patient was seen by Orthopedic and the patient is reluctant to have any surgery done at this moment. The patient wants to go home, if he stays, we will do and we will order also an echocardiogram, but the patient insist on going home and Dr. Berry is going to send him home with Norvasc 10 mg daily. He was advised to follow with Dr. eBrry in the office and followup and we will give him all the instruction about watching his blood pressure and rechecking his blood pressure and to lose weight and go on low-cholesterol diet. If his cholesterol stays high, then he will need statin therapy. Valeriy Tristan MD
== END 2018-05-08 17:12 | disposition home or self-care (01) | DRG 184 ==
LOC: ED 13:11 → ERH 16:07 → 5RNO 20:51
PROVIDERS: ADMIT Internal Medicine; ATTEND Internal Medicine
DX: S22.41XA Multiple fractures of ribs, right side, initial encounter for closed fracture (principal); S27.329A Contusion of lung, unspecified, initial encounter; J90 Pleural effusion, not elsewhere classified; K76.6 Portal hypertension; S42.021A Displaced fracture of shaft of right clavicle, initial encounter for closed fracture; I10 Essential (primary) hypertension; E78.00 Pure hypercholesterolemia, unspecified; K76.89 Other specified diseases of liver; N20.0 Calculus of kidney; K80.20 Calculus of gallbladder without cholecystitis without obstruction; W11.XXXA Fall on and from ladder, initial encounter; Y93.H3 Activity, building and construction; Y99.0 Civilian activity done for income or pay; Z87.891 Personal history of nicotine dependence